=== PATIENT | male | born 1995 | race Caucasian/White ===

== ENCOUNTER → 2017-09-02 | Outpatient (REF) | payer OTHER | PROVIDERS: ATTEND Family Medicine | DX: Z20.2 Contact with and (suspected) exposure to infections with a predominantly sexual mode of transmission (principal) | CPT/HCPCS: 87491; 87591 ==

== ENCOUNTER → 2017-11-18 | Outpatient (REF) | payer OTHER ==
[2017-11-18 10:35] LABS: PLATELET COUNT, AUTOMATED 241 K/uL (150-450)
== END ==
PROVIDERS: ATTEND Family Medicine
DX: R10.9 Unspecified abdominal pain (principal)
CPT/HCPCS: 82040; 82247; 82310; 82374; 82435; 82565; 82947; 84075; 84132; 84155; 84295; 84450; 84460; 84520; 85025; 86140

== ENCOUNTER → 2017-11-18 | Outpatient (CLI) | payer OTHER ==
[~2017-11-18] MED LIST: IOPAMIDOL 76% 75 ML INFUS BTL 75 ML ONE; NS 0.9% 25 ML BAG 25 ML ONE
--- NOTE | 2017-11-18 12:35 | RADIOLOGY IMAGING REPORT ---
FACILITY: [facility] PATIENT NAME: Marco Alvarado : 1995 MR: [id number] V: [id number] EXAM DATE: ORDERING PHYSICIAN: SPENCER BEE TECHNOLOGIST: Location: Patient: Marco Alvarado : 1995 Visit/Account:[id number] Date of Sevice: 11/18/2017 EXAMINATION: CT abdomen and pelvis with contrast COMPARISON: None. HISTORY: Right upper quadrant pain. PROCEDURE: Multiplanar contrast enhanced CT of the abdomen and pelvis with 75 mL intravenous Isovue 3 70. One of the following dose optimization techniques was utilized in the performance of this exam: A utomated exposure control; adjustment of the mA and/or kV according to the patient's size; or use of an iterative reconstruction technique. Specific details can be referenced in the facility's radiolo gy CT exam operational policy. FINDINGS: Visualized thorax: No evidence of acute disease within the visualized lower thorax. Liver: Negative. Gallbladder and biliary system: Negative Spleen: Negative. Pancreas: Negative. Adrenal glands: Negative. Kidneys and bladder: No renal mass or evidence of an obstructive uropathy. Urinary bladder is unrema rkable. Vessels: Within normal limits. Bowel and mesentery: Stomach is within normal limits. No small bowel obstruction. Appendix is unrem arkable. Small amount of stool within the colon. No bowel or mesenteric inflammation. Pelvic organs: Negative. Lymph nodes: No adenopathy. Free air/free fluid: None. Abdominal wall and osseous structures: Negative. IMPRESSION: Negative CT abdomen and pelvis. Results were discussed with SPENCER BEE at 11/18/2017 12:30 PM. Report Dictated By: Dionisio Martin MD at 11/18/2017 12:23 PM Report E-Signed By: Dionisio Martin MD at 11/18/2017 12:31 PM WSN:[id number]
== END ==
LOC: CT 10:47
PROVIDERS: ATTEND Family Medicine
DX: R10.11 Right upper quadrant pain (principal)
CPT/HCPCS: 74177; Q9967

== ENCOUNTER 2017-12-10 21:23 | Emergency (ER) | payer OTHER ==
[2017-12-10] MEDS ORDERED: PROPOFOL EMUL 10MG/ML 20 ML VL IV ONE (21:25)
[2017-12-10] MEDS ORDERED: NS(*) 0.9% 1000 ML BAG 1,000 ML IV ONE (21:30)
[2017-12-10] MEDS ORDERED: KETOROLAC 30 MG/ML VIAL IVP ONE (21:50)
[2017-12-10] MEDS ORDERED: HYDR-4309 PO (22:00)
--- NOTE | 2017-12-10 22:01 | ER Report ---
History and Physical Time Seen By MD: 21:24 Hx. of Stated Complaint: PATIENT WAS PLAYING SOFTBALL, HIS RIGHT KNEE CAP "POPPED" OUT. HPI/ROS CHIEF COMPLAINT: Patella dislocation HISTORY OF PRESENT ILLNESS: 22-year-old male playing softball was in the batter' s box when he swung a pitch. He bent his knee and twisted inward. He dislocated his patella. He is brought in by EMS on a backboard on his left side with his right knee clutched in his hands. Patient was given 200 mcg of fentanyl by EMS prior to arrival. Patient reports a distant history of a previous left patellar dislocation Allergies: Coded Allergies: No Known Drug Allergies (Unverified , 12/10/17) Home Meds Active Scripts Hydrocodone Bit/Acetaminophen (NORCO 5-325 TABLET) 1 Each Tablet, 1 EACH PO Q4H Y for PAIN, #10 TAB Prov:DELFINAIZABELLAKhai Mon DO 12/10/17 Reviewed Nurses Notes: Yes Old Medical Records Reviewed: Yes Hx Smoking: No Constitutional Vital Sign - Last 24 Hours 12/10/17 12/10/17 12/10/17 12/10/17 21:24 21:27 21:29 21:30 Pulse 100 92 79 Resp 16 8 B/P (MAP) 135/97 137/97 (110) Pulse Ox 90 92 91 O2 Delivery Room Air 12/10/17 12/10/17 12/10/17 12/10/17 21:31 21:33 21:35 21:36 Pulse 102 99 79 Resp 14 29 9 B/P (MAP) 126/75 (92) Pulse Ox 91 94 99 12/10/17 12/10/17 12/10/17 12/10/17 21:37 21:39 21:40 21:41 Pulse 112 76 71 Resp 17 19 20 B/P (MAP) 137/74 (95) Pulse Ox 100 100 97 12/10/17 12/10/17 12/10/17 12/10/17 21:45 21:49 21:50 21:51 Pulse 69 87 86 Resp 12 11 25 B/P (MAP) 138/89 (105) 143/80 (101) Pulse Ox 98 95 100 12/10/17 12/10/17 12/10/17 12/10/17 21:53 21:55 21:57 21:59 Pulse 89 82 91 102 Resp 10 14 19 16 B/P (MAP) 130/86 (101) Pulse Ox 99 100 97 93 12/10/17 12/10/17 12/10/17 12/10/17 22:00 22:01 22:06 22:08 Pulse 95 99 91 Resp 13 17 16 B/P (MAP) 125/82 (96) Pulse Ox 95 97 96 12/10/17 12/10/17 12/10/17 12/10/17 22:10 22:12 22:14 22:15 Pulse 94 115 119 Resp 12 14 14 B/P (MAP) 140/76 (97) 138/83 (101) Pulse Ox 96 97 96 12/10/17 12/10/17 12/10/17 12/10/17 22:16 22:18 22:20 22:22 Pulse 97 95 89 116 Resp 13 16 12 21 B/P (MAP) 130/75 (93) Pulse Ox 96 98 98 97 12/10/17 12/10/17 12/10/17 12/10/17 22:24 22:25 22:26 22:28 Pulse 94 99 93 Resp 19 37 17 B/P (MAP) 128/83 (98) Pulse Ox 98 99 97 12/10/17 12/10/17 12/10/17 12/10/17 22:30 22:32 22:34 22:35 Pulse 102 102 91 Resp 20 18 B/P (MAP) 131/87 (102) 134/73 (93) Pulse Ox 97 97 12/10/17 12/10/17 22:36 22:38 Pulse 94 ??? Resp 18 11 Pulse Ox 97 97 Physical Exam General appearance: Moderate distress Respiratory: Chest is non tender, lungs are clear to auscultation. Cardiac: Regular rate and rhythm Extremities: Right lower extremity neurovascularly intact. There is obvious dislocation of the patella DIFFERENTIAL DIAGNOSIS: After history and physical exam differential diagnosis was considered for sprain, strain, fracture, dislocation, contusion Medical Decision Making ED Course/Re-evaluation Clinical Indication for ER IV: Hydration, IV Access ED Course Patient was admitted to an examination room. H&P was done. The differential diagnoses was considered. On clinical examination. Patient is obviously dislocated right patella. Diagnostic x-rays are performed. No obvious fracture was noted. Patient was given informed consent for conscious sedation and patella relocation. Patient was monitored for 1 hour post reduction. Postreduction films show normal placement of the patella. Patient was placed in a knee immobilizer. He is given a prescription for hydrocodone for pain relief. Patient advised to follow-up with orthopedics. He is given Dr. Allred's number. Procedure: Procedural sedation. A pre-sedation evaluation was completed on the patient at 2125. Patient is an appropriate candidate for procedural sedation. The risks of the sedation were discussed with the patient. A time out was completed. The patient was reevaluated immediately prior to initiation of sedation. The patient was sedated with propofol 130 mg IV. The patient was monitored with continuous pulse oximetry and pvc monitor. There were no complications and no significant hypoxemia. I remained at the bedside for the sedation. The total time I spent in the procedural sedation was 20 minutes. Post sedation evaluation: Patient was alert and cooperative, hemodynamically stable with appropriate respiratory status, temperature and pain control without ongoing nausea and vomiting. Procedure: Dislocation reduction. The right patella was reduced in the usual fashion without complications. Post reduction the patient's neurovascular exam is normal. Post reduction x-ray demonstrates reduction of the joint to the anatomic position. The procedure was performed by myself. Decision to Disposition Date: Dec 10, 2017 Decision to Disposition Time: 21:57 Depart Departure Latest Vital Signs Vital Signs Date Time Temp Pulse Resp B/P (MAP) Pulse Ox O2 Delivery O2 Flow Rate FiO2 12/10/17 22:38 ??? 11 97 12/10/17 22:35 134/73 (93) 12/10/17 21:24 Room Air Impression: Primary Impression: Dislocation of patella, right, closed Condition: Improved Disposition: HOME OR SELF-CARE Referrals: LANIE LEVIN MD New Scripts Hydrocodone Bit/Acetaminophen (NORCO 5-325 TABLET) 1 Each Tablet 1 EACH PO Q4H Y for PAIN, #10 TAB Prov: ALICE MATHIS DO 12/10/17 Patient Instructions: Patellar Dislocation (ED) Additional Instructions: Wear knee immobilizer for one week Take ibuprofen 200 mg 3-4 tablets 3 times a day with food Apply ice packs to your knee Follow-up with orthopedic group Dr. Levin takes care of the [place] football team, his information is included in your paperwork Problem Qualifiers Primary Impression: Dislocation of patella, right, closed Encounter type: initial encounter Qualified Codes: S83.004A - Unspecified dislocation of right patella, initial encounter ALICE MATHIS DO Dec 10, 2017 22:01
[2017-12-10] MEDS ORDERED: ACET/HYDROC 5/325MG TH ER ONLY 2 TAB/BOTTLE PO ONE (22:05)
--- NOTE | 2017-12-10 22:05 | RADIOLOGY IMAGING REPORT ---
[place] [facility] [place]: Marco Alvarado : 1995 MR: [id number] V: [id number] EXAM DATE: ORDERING PHYSICIAN: ALICE MATHIS TECHNOLOGIST: [place] [facility] [place]: aMrco Alvarado : 1995 Visit/Account:[id number] Date of Sevice: 12/10/2017 INDICATION: dislocated? EXAM DATE: 12/10/2017 9:30 PM COMPARISON: None. FINDINGS: Single lateral view of the right knee. Mineralization is normal. No apparent fracture. Orientation of the patella is difficult to evaluate on this single view, though it does appear to abnormally over lap one of the femoral condyles, though this may also be spurious because of a slightly angulated lat eral view. Numerous radiopaque densities overlying the bones and soft tissues of the distal thigh, k nee and proximal calf. IMPRESSION: 1. Limited evaluation for dislocation on this single lateral view. Correlate with exam for consider additional views. 2. Multiple radiopaque densities over the right knee, possibly superficial. Correlate with exam and consider follow-up imaging as indicated. Report Dictated By: Preston Escobedo MD at 12/10/2017 9:59 PM Report E-Signed By: Preston Escobedo MD at 12/10/2017 10:01 PM WSN:[id number]
--- NOTE | 2017-12-10 22:06 | RADIOLOGY IMAGING REPORT ---
FACILITY: [facility] PATIENT NAME: Marco Alvarado : 1995 MR: [id number] V: [id number] EXAM DATE: ORDERING PHYSICIAN: ALICE MATHIS TECHNOLOGIST: Location: [facility] Patient: Marco Alvarado : 1995 Visit/Account:[id number] Date of Sevice: 12/10/2017 INDICATION: post patella reduction EXAM DATE: 12/10/2017 9:45 PM COMPARISON: None. FINDINGS: 2 views right knee. Mineralization is normal. No acute alignment abnormality or fracture. There may be a small joint effusion. Radiopaque density seen on the prior examination were likely superficial IMPRESSION: Possible small joint effusion with no acute osseous abnormality of the right knee. Report Dictated By: Preston Escobedo MD at 12/10/2017 10:01 PM Report E-Signed By: Preston Escobedo MD at 12/10/2017 10:03 PM WSN:[id number]
[2017-12-10 22:35] VITALS: BP 134/73
== END 2017-12-10 22:45 | disposition home or self-care (01) ==
LOC: ER 21:33
DX: S83.004A Unspecified dislocation of right patella, initial encounter (principal); X50.1XXA Overexertion from prolonged static or awkward postures, initial encounter; Y93.64 Activity, baseball
CPT/HCPCS: 27560; 73560; 96361; 96374; 99285; J1885; J2704; J7030; L1830; 99152

== ENCOUNTER → 2017-12-10 | Outpatient (CLI) | payer OTHER ==
[~2017-12-10] MED LIST changes: +HYDR-4309 PO; -IOPAMIDOL 76% 75 ML INFUS BTL 75 ML ONE; -NS 0.9% 25 ML BAG 25 ML ONE
== END ==
LOC: AMB 21:05
PROVIDERS: ATTEND Nurse Practitioner
DX: S83.104A Unspecified dislocation of right knee, initial encounter (principal)
CPT/HCPCS: A0425; A0427

== ENCOUNTER 2018-01-26 12:44 | Emergency (ER) | payer OTHER ==
--- NOTE | 2018-01-26 12:46 | ER Report ---
History and Physical Time Seen By MD: 13:00 HPI/ROS CHIEF COMPLAINT: Right leg pain HISTORY OF PRESENT ILLNESS: Patient is a 23-year-old male who is status post a right knee surgery that was conducted approximate [address] Matias. Over the last 24-48 hours he's been expressing pain to his calf on the right side. He did call and speak with orthopedics and was sent to the emergency department for evaluation for possible DVT. She denies chest pain or shortness of breath. Allergies: Coded Allergies: No Known Drug Allergies (Unverified , 12/10/17) Home Meds Active Scripts Hydrocodone Bit/Acetaminophen (NORCO 5-325 TABLET) 1 Each Tablet, 1 EACH PO Q4H Y for PAIN, #10 TAB Prov:ALICE MATHIS DO 12/10/17 Past Medical/Surgical History Right knee surgery Hx Smoking: No Hx Substance Use Disorder: No Hx Alcohol Use: Yes Constitutional Vital Sign - Last 24 Hours 01/26/18 01/26/18 01/26/18 01/26/18 12:48 12:49 13:00 13:14 Temp 97.8 Pulse 123 99 Resp 20 B/P (MAP) 133/92 133/92 (106) 136/84 (101) Pulse Ox 96 95 O2 Delivery Room Air 01/26/18 01/26/18 13:30 13:44 Pulse 93 B/P (MAP) 129/70 (89) Pulse Ox 95 Physical Exam General appearance: Alert no distress. Respiratory: Chest is non tender, lungs are clear to auscultation. Cardiac: Regular rate and rhythm [ ] Examination of the right lower extremity reveals no obvious swelling with comparison to the left. Patient does have positive Homans sign. Palpable cord felt Medical Decision Making ED Course/Re-evaluation ED Course Plan at this time will be a Doppler ultrasound of the right lower extremity to rule out DVT. 01/26/2018 1:44:19 pm Decision to Disposition Date: Jan 26, 2018 Decision to Disposition Time: 13:44 Depart Departure Latest Vital Signs Vital Signs Date Time Temp Pulse Resp B/P (MAP) Pulse Ox O2 Delivery O2 Flow Rate FiO2 01/26/18 13:44 93 95 01/26/18 13:30 129/70 (89) 01/26/18 12:48 97.8 20 Room Air Impression: Primary Impression: Right calf pain Condition: Improved Disposition: HOME OR SELF-CARE Patient Instructions: Leg Pain (ED) BROCK COLMENARES MD Jan 26, 2018 12:46
[2018-01-26 13:30] VITALS: BP 129/70
--- NOTE | 2018-01-26 14:06 | RADIOLOGY IMAGING REPORT ---
FACILITY: [facility] [place] PATIENT NAME: Marco Alvarado : 1995 MR: [id number] V: [id number] EXAM DATE: ORDERING PHYSICIAN: MARCO COLMENARES TECHNOLOGIST: Location: [facility] - [place] Patient: Marco Alvarado : 1995 Visit/Account:[id number] Date of Sevice: 01/26/2018 EXAMINATION: Doppler ultrasound deep veins unilateral lower extremity HISTORY: Calf pain, status post knee surgery 4.5 weeks ago. COMPARISON: None. FINDINGS: Grayscale compression, duplex and color Doppler interrogation of the right lower extremity deep veins from common femoral vein to proximal calf was performed. The greater saphenous vein in the ipsilater al proximal thigh was evaluated using similar technique. Right lower extremity: Common femoral vein: Negative. Femoral vein: Negative. Deep femoral vein: Negative. Popliteal vein: Negative. Visualized deep calf veins: Negative. Greater saphenous vein in the proximal thigh: Negative. Popliteal fossa: Negative. Waveforms: Normal respiratory phasicity. IMPRESSION: No DVT of the right lower extremity. Report Dictated By: Mirlande Jordan MD at 01/26/2018 2:00 PM Report E-Signed By: Mirlande Jordan MD at 01/26/2018 2:01 PM WSN:[id number]
== END 2018-01-26 13:52 | disposition home or self-care (01) ==
LOC: ER 12:52
DX: M79.661 Pain in right lower leg (principal)
CPT/HCPCS: 99283